=== PATIENT | female | born 1930 | race Caucasian/White ===

== ENCOUNTER 2018-04-27 20:08 | Observation (INO) ==
[2018-04-27] MEDS ORDERED: Sod Chloride 0.9% Inj 1,000 ML IV.SIG ONE (20:41)
[2018-04-27] MEDS ORDERED: Dextrose 5%/NaCl 0.9% Inj 1,000 ML IV.CONT SCH (20:45)
[2018-04-27 21:11] LABS: Baso # (Auto) 0.1 th/mm3 (0.0-0.2); Baso % (Auto) 0.6 % (0.0-2.0); Eos # (Auto) 0.1 th/mm3 (0.0-0.4); Eos % (Auto) 0.9 % (0.0-4.0); Hematocrit 39.8 % (35.0-46.0); Hemoglobin 13.1 gm/dL (11.6-15.3); Lymph # (Auto) 0.5 th/mm3 (1.0-4.8); Lymph % (Auto) 4.5 % (9.0-44.0); Mean Corpuscular HGB Conc 32.8 % (32.0-36.0); Mean Corpuscular Hemoglobin 28.7 pg (27.0-34.0); Mean Corpuscular Volume 87.4 fL (80.0-100.0); Mean Platelet Volume 9.2 fL (7.0-11.0); Mono # (Auto) 0.6 th/mm3 (0.0-0.9); Mono % (Auto) 5.9 % (0.0-8.0); Neut # (Auto) 8.7 th/mm3 (1.8-7.7); Neut % (Auto) 88.1 % (16.0-70.0); Platelet Count 229 th/mm3 (150-450); Red Blood Count 4.56 mil/mm3 (4.00-5.30); Red Cell Distribution Width 14.5 % (11.6-17.2)
[2018-04-27 21:21] LABS: Chloride 106 meq/L (98-107); Sodium 137 meq/L (136-145)
[2018-04-27 21:25] LABS: Albumin 3.6 g/dL (3.4-5.0); Anion Gap 6 meq/L (5-15); Carbon Dioxide 25.3 meq/L (21.0-32.0)
--- NOTE | 2018-04-27 21:30 | ED ---
HPI General Chief complaint: Diabetic Stated complaint: blood sugar is low Time Seen by Provider: 04/27/18 20:29 Source: patient Mode of arrival: ambulatory Limitations: no limitations History of Present Illness HPI narrative: Patient has had nausea vomiting and diarrhea for the last 3 days. Patient has had significant nausea and vomiting particularly today and one episode of diarrhea prior to arrival. Patient has had increased stress and has stopped her insulin for the last 3 days due to low sugar levels ranging between 50 and 70. However patient has had no significant oral intake for the 3 -day period. Stool is yellow green with no blood or black stools. Related Data Home Medications Medication Instructions Recorded Confirmed albuterol sulfate [Ventolin HFA] 2 puff INHALATION QID 04/27/18 04/27/18 aspirin [Aspir-81] 81 mg PO DAILY 04/27/18 04/27/18 cholecalciferol (vitamin D3) 1,000 unit PO DAILY 04/27/18 04/27/18 [Vitamin D3] coenzyme Q10 [Co Q-10] 100 mg PO DAILY 04/27/18 04/27/18 ezetimibe [Zetia] 10 mg PO DAILY 04/27/18 04/27/18 glimepiride 4 mg PO BID 04/27/18 04/27/18 hydroxychloroquine 200 mg PO DAILY 04/27/18 04/27/18 insulin degludec [Tresiba 15 unit SUBCUT DAILY 04/27/18 04/27/18 FlexTouch U-100] levothyroxine 50 mcg PO DAILY 04/27/18 04/27/18 linagliptin [Tradjenta] 5 mg PO DAILY 04/27/18 04/27/18 losartan 25 mg PO DAILY 04/27/18 04/27/18 multivitamin 1 tab PO DAILY 04/27/18 04/27/18 [id number] oil 1 cap PO DAILY 04/27/18 04/27/18 [[place]-3 2100] simvastatin 20 mg PO QPM 04/27/18 04/27/18 Allergies Allergy/AdvReac Type Severity Reaction Status Date / Time alendronate sodium Allergy Severe COULD NOT Verified 04/27/18 21:07 WALK levofloxacin Allergy Severe TENDINITIS Verified 04/27/18 21:07 penicillin G Allergy Severe Rash Verified 11/29/18 21:07 Sulfa (Sulfonamide Allergy Severe Anaphylaxis Verified 04/27/18 21:07 Antibiotics) STERIODS Allergy Severe TENDINITIS Uncoded 04/27/18 21:07 Review of Systems ROS: all other systems reviewed are negative [facility] Medical History Medical History History of COPD (Acute) History of high blood pressure (Acute) History of high cholesterol (Acute) History of hypothyroidism (Acute) Hx of cyst of breast (Acute) Hx of diabetes mellitus (Acute) Surgical History Surgical History Hx of appendectomy (Acute) Hx of tonsillectomy (Acute) Social History Social History Substance History: No History of Abuse Smoking Status: Former smoker Tobacco Type: Cigarettes How Often Do You Have a Drink Containing Alcohol: Never Recent Travel in [facility] within the Last 8 Weeks: No Recent Out of Country Travel within the Last 8 Weeks: No Immunization History Tetanus Immunization: >5 Years Exam Narrative Exam Narrative: GENERAL: Alert and oriented with nausea SKIN: Focused skin assessment warm/dry. HEAD: Atraumatic. Normocephalic. EYES: Pupils equal and round. No scleral icterus. No injection or drainage. ENT: No nasal bleeding or discharge. Mucous membranes pink and dry. NECK: Trachea midline. No JVD. CARDIOVASCULAR: Regular rate and rhythm. No murmur appreciated. RESPIRATORY: No accessory muscle use. Clear to auscultation. Breath sounds equal bilaterally. GASTROINTESTINAL: Abdomen soft, non-tender, nondistended. Hepatic and splenic margins not palpable. MUSCULOSKELETAL: No obvious deformities. No clubbing. No cyanosis. No edema. NEUROLOGICAL: Awake and alert. Motor grossly within normal limits. Normal speech. PSYCHIATRIC: Appropriate mood and affect; insight and judgment normal. Course Initial Documented Vital Signs Temperature 97.8 F 04/27/18 20:45 Pulse Rate 71 04/27/18 20:45 Respiratory Rate 18 04/27/18 20:45 Blood Pressure 158/69 H 04/27/18 20:45 Pulse Oximetry 95 04/27/18 20:45 Last Documented Vital Signs Temperature 97.8 F 04/27/18 20:45 Pulse Rate 71 04/27/18 20:45 Respiratory Rate 18 04/27/18 20:45 Blood Pressure 158/69 H 04/27/18 20:45 Pulse Oximetry 95 04/27/18 20:45 Medical Decision Making MDM Narrative Medical decision making narrative: Hypoglycemia secondary to glimeride with gastroenteritis and dehydration. Medical Screen Exam Complete: Yes Emergency Medical Condition: Yes Lab Data Result diagrams: 04/27/18 21:05 04/27/18 21:05 Lab Results 04/27/18 04/27/18 Range/Units 21:05 21:05 CBC w Diff Auto diff final WBC 10.0 (4.0-11.0) th/mm3 RBC 4.56 (4.00-5.30) mil/mm3 Hgb 13.1 (11.6-15.3) gm/dL Hct 39.8 (35.0-46.0) % MCV 87.4 (80.0-100.0) fL MCH 28.7 (27.0-34.0) pg MCHC 32.8 (32.0-36.0) % RDW 14.5 (11.6-17.2) % Plt Count 229 (150-450) th/mm3 MPV 9.2 (7.0-11.0) fL Neut % (Auto) 88.1 H (16.0-70.0) % Lymph % (Auto) 4.5 L (9.0-44.0) % Nance % (Auto) 5.9 (0.0-8.0) % Eos % (Auto) 0.9 (0.0-4.0) % Baso % (Auto) 0.6 (0.0-2.0) % Neut # (Auto) 8.7 H (1.8-7.7) th/mm3 Lymph # (Auto) 0.5 L (1.0-4.8) th/mm3 Nance # (Auto) 0.6 (0.0-0.9) th/mm3 Eos # (Auto) 0.1 (0.0-0.4) th/mm3 Baso # (Auto) 0.1 (0.0-0.2) th/mm3 WBC Differential . Differential Comment . Sodium 137 (136-145) meq/L Potassium 5.3 H (3.5-5.1) meq/L Chloride 106 (98-107) meq/L Carbon Dioxide 25.3 (21.0-32.0) meq/L Anion Gap 6 (5-15) meq/L BUN 27 H (7-18) mg/dL Creatinine 1.30 H (0.50-1.00) mg/dL Estimated GFR 39 L (>89) mL/min Random Glucose 46 L* (74-106) mg/dL Calcium 9.0 (8.5-10.1) mg/dL Magnesium 2.3 (1.5-2.5) mg/dL Total Bilirubin 0.5 (0.2-1.0) mg/dL AST 56 H (15-37) U/L ALT 42 (10-53) U/L Alkaline Phosphatase 73 (45-117) U/L Total Protein 7.5 (6.4-8.2) g/dL Albumin 3.6 (3.4-5.0) g/dL Discharge Plan Discharge Disposition Patient Disposition: 30 Still Patient Discharge Condition Condition: Stable Discharge Details Diagnosis: Hypoglycemia, Gastroenteritis, Acute dehydration Physicians Team ED Provider: Lawrence Lechuga Primary Care Provider: Lai Cunningham Attending Provider: Lai Cunningham Status ED Status: Admitted Observation Patient
[2018-04-27 21:35] LABS: Alanine Aminotransferase 42 U/L (10-53); Alkaline Phosphatase 73 U/L (45-117); Aspartate Aminotransferase 56 U/L (15-37); Blood Urea Nitrogen 27 mg/dL (7-18); Glomerular Filtration Rate 39 mL/min (>89); Magnesium 2.3 mg/dL (1.5-2.5); Total Protein 7.5 g/dL (6.4-8.2)
[2018-04-27 21:36] LABS: Potassium 5.3 meq/L (3.5-5.1)
[2018-04-27 21:37] LABS: Glucose,Random 46 mg/dL (74-106)
[2018-04-27] MEDS ORDERED: Octreotide Inj 50 MCG/ML Vial IV.PUSH ONE (21:45)
[2018-04-27] MEDS ORDERED: Octreotide Inj 500 MCG in Sodium Chlor 0.9% Inj 500 ML IV.CONT SCH (22:00)
[2018-04-27] MEDS ORDERED: Dextrose 50% in Water 50 ML Vial IV.PUSH PRN ×2 (22:01→23:12)
[2018-04-27] MEDS ORDERED: Dextrose 5%/NaCl 0.45% Inj 1,000 ML IV.CONT SCH (22:01)
[2018-04-27 23:11] LABS: Bilirubin,Urine Negative (Negative); Clarity,Urine Clear (Clear); Color,Urine Yellow (Yellw/Straw); Glucose,Urine (UA) Negative (Negative); Leukocyte Esterase,Urine Trace (Negative); Nitrite,Urine Negative (Negative); Specific Gravity,Urine Less/Equal 1.005 (1.002-1.035); Urobilinogen,Urine 0.2 mg/dL (Less than 2)
[2018-04-27 23:26] LABS: Squamous Epithelial Cell,Urine 0-5 /hpf (0-5); WBC,Urine 0-5 /hpf (0-5)
[2018-04-28] MEDS ORDERED: Sod Chloride 0.9% Inj 1,000 ML IV.CONT SCH (04:00)
[2018-04-28 06:32] LABS: Baso % (Auto) 0.5 % (0.0-2.0); Eos # (Auto) 0.2 th/mm3 (0.0-0.4); Eos % (Auto) 3.6 % (0.0-4.0); Hematocrit 34.8 % (35.0-46.0); Hemoglobin 11.4 gm/dL (11.6-15.3); Lymph % (Auto) 15.7 % (9.0-44.0); Mean Corpuscular HGB Conc 32.9 % (32.0-36.0); Mean Corpuscular Volume 88.2 fL (80.0-100.0); Mean Platelet Volume 9.6 fL (7.0-11.0); Mono # (Auto) 0.6 th/mm3 (0.0-0.9); Mono % (Auto) 9.7 % (0.0-8.0); Neut # (Auto) 4.3 th/mm3 (1.8-7.7); Neut % (Auto) 70.5 % (16.0-70.0); Platelet Count 191 th/mm3 (150-450); Red Blood Count 3.94 mil/mm3 (4.00-5.30); Red Cell Distribution Width 14.1 % (11.6-17.2); White Blood Count 6.1 th/mm3 (4.0-11.0)
[2018-04-28 06:43] LABS: Alanine Aminotransferase 37 U/L (10-53); Albumin 2.7 g/dL (3.4-5.0); Alkaline Phosphatase 61 U/L (45-117); Anion Gap 5 meq/L (5-15); Aspartate Aminotransferase 40 U/L (15-37); Blood Urea Nitrogen 21 mg/dL (7-18); Calcium 7.7 mg/dL (8.5-10.1); Carbon Dioxide 23.8 meq/L (21.0-32.0); Chloride 112 meq/L (98-107); Glomerular Filtration Rate 42 mL/min (>89); Glucose,Random 206 mg/dL (74-106); Potassium 4.3 meq/L (3.5-5.1); Sodium 141 meq/L (136-145); Total Protein 5.8 g/dL (6.4-8.2)
[2018-04-28] MEDS ORDERED: Levothyroxine 50 MCG Tablet PO SCH (07:00)
--- NOTE | 2018-04-28 08:16 | P.HP ---
History of Present Illness Service: [facility] Adult med Primary Care Physician: Lai Cunningham MD Chief Complaint: n/v/d, low blood sugars History of Present Illness: 87-year-old independently functional female with relatively well controlled diabetes presents to ER with complaint of nausea vomiting and diarrhea for the last 3 days. Patient has had significant nausea and vomiting particularly today and one episode of diarrhea prior to arrival. Patient has had increased stress and has stopped her insulin for the last 3 days due to low sugar levels ranging between 50 and 70. However patient has had no significant oral intake for the 3-day period. Stool is yellow green with no blood or black stools. Patient is on several oral hypoglycemic medications and has continued those medications despite not eating much. On arrival to ER her sugars were noted to be in the 40s. She was placed on D5W and was also given a dose of octreotide. Her sugars responded well to the dextrose infusion and are now running in the low 200s regularly. I converted her to normal saline a couple of hours ago and her sugar still around. She is overall feeling better has not had any diarrhea or vomiting since being in the hospital. She did have some nausea last night but was given a dose of Zofran which seemed to be quite effective for her. She feels better this morning and is desirous of discharge home today if possible. Denies any chest pain or shortness of breath. She had no hemoptysis or hematemesis. She has not had much oral intake here so we will see how she does with p.o. intake before formal disposition is made. SH No tobacco in 6 years, prior to that smoked a pack per day for about 63 years she says Rare alcohol use Lives alone and is quite independent of all activities of daily living. She still drives and does her own shopping and cooking. Has a daughter that lives close to her and checks on her regularly and a son who is a rock wool insulator in [facility]. 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 She has been a for 6 years. - Diagnosis (1) Hypoglycemia (2) Gastroenteritis (3) Acute dehydration (4) COPD (chronic obstructive pulmonary disease) (5) Diabetic nephropathy (6) Hyperlipidemia (7) Hypertension (8) Hypothyroidism Review of Systems Constitutional: Reports anorexia Eyes: Reports blurry vision Ears, Nose, Mouth, and Throat: Denies abnormal hearing, Denies bleeding gums, Denies bad breath, Denies change in voice, Denies dental pain, Denies difficulty swallowing, Denies dizziness, Denies dry mouth, Denies ear discharge , Denies ear pain, Denies facial pain, Denies headache(s), Denies hearing loss, Denies hoarseness, Denies lip swelling, Denies nosebleed, Denies mouth lesions, Denies mouth pain, Denies nasal congestion, Denies nasal discharge, Denies nasal obstruction, Denies nasal trauma, Denies neck lump, Denies neck pain, Denies nose pain, Denies pain with swallowing, Denies poor balance, Denies post nasal drip, Denies ringing in the ears, Denies sinus pain, Denies sinus pressure , Denies sore throat, Denies throat swelling, Denies tongue swelling, Denies other Cardiovascular: Denies chest pain, Denies chest pain at rest, Denies chest pain with activity, Denies excessive sweating, Denies fainting, Denies fast heart rate, Denies foot swelling, Denies generalized swelling, Denies irregular heart rhythm, Denies leg pain with activity, Denies leg sores, Denies leg swelling, Denies lightheadedness, Denies radiating jaw, neck or arm pain, Denies rapid, pounding, or irregular heartbeat, Denies shortness of breath, Denies shortness of breath with activity, Denies shortness of breath when lying down, Denies shortness of breath causing sudden awakening, Denies slow heart rate, Denies other Respiratory: Denies change in phlegm color, Denies chest congestion, Denies cough, Denies coughing up blood, Denies excessive phlegm production, Denies pain on inspiration, Denies pain with cough, Denies shortness of breath, Denies shortness of breath with activity, Denies snoring, Denies stridor, Denies wheezing, Denies other Gastrointestinal: Reports bloating, Reports change in stools, Reports heartburn , Reports loose stools, Reports nausea, Reports vomiting, Denies abdominal pain , Denies belching, Denies black, tarry stools, Denies bright, red blood in stools, Denies change in bowel habits, Denies constant urge to pass stool, Denies coffee ground vomit, Denies constipation, Denies cramping, Denies difficulty swallowing, Denies excessive passing of gas, Denies feeling full early, Denies incontinent of stools, Denies pain with swallowing, Denies vomiting blood, Denies other Musculoskeletal: Reports back pain, Denies abnormal walking, Denies body aches, Denies decreased muscle mass, Denies deformity, Denies joint pain, Denies joint swelling, Denies limited joint movement, Denies loss of height, Denies muscle cramps, Denies muscle weakness, Denies neck pain, Denies numbness, Denies radiating pain into limb, Denies stiffness, Denies tingling, Denies other Psychiatric: Denies abnormal sleep pattern, Denies anxiety, Denies behavioral changes, Denies change in appetite, Denies change in sex drive, Denies confusion , Denies depression, Denies difficulty concentrating, Denies hearing things others do not hear, Denies hopelessness, Denies irritability, Denies lack of enjoyment, Denies memory loss, Denies mood swings, Denies panic attacks, Denies paranoia, Denies seeing things others do not see, Denies sensing things others do not sense, Denies tactile hallucinations, Denies thoughts of hurting/killing others, Denies thoughts of hurting/killing yourself, Denies other PMFSH - History History Provided By: Patient - Medical History Medical History: Medical History (Last Updated 04/28/18 @ 08:12 by Marshal Aponte MD, PhD) Hypothyroidism (Acute) COPD (chronic obstructive pulmonary disease) (Acute) Diabetic nephropathy (Acute) Hyperlipidemia (Acute) Hypertension (Acute) Hx of cyst of breast - Surgical History Surgical History: Surgical History (Last Updated 04/28/18 @ 08:03 by Marshal Aponte MD, PhD) H/O exploratory laparotomy Onset Date: ~1970 History of cataract surgery Hx of appendectomy Hx of tonsillectomy - Family History Family History: Family History (Last Updated 04/28/18 @ 08:04 by Marshal Aponte MD, PhD) Other Family history non-contributory - Social History I have reviewed the patient's Social History: Yes - Tobacco History Tobacco Use In Past 30 Days: No Smoking Status: Former smoker Tobacco Type: Cigarettes Packs Per Day: 1 Years Smoked: 63 Smoking End Date: 2012 - Alcohol History How Often Do You Have a Drink Containing Alcohol: Monthly or less - Substance Use History Substance History: No History of Abuse - Travel History Recent Travel in the [place] Within the Last 8 Weeks: No Recent Travel Out of the Country Within the Last 8 Weeks: No - Immunization History Tetanus Immunization: >5 Years Medications and Allergies Active Medications: Active Medications Albuterol (Duoneb Neb (Prn)) 1 ampul NEB Q4HR NEB PRN PRN Reason: wheeze, sob Aspirin (Ecotrin) 81 mg PO DAILY [facility] Dextrose (D50w Vial) 50 ml IV.PUSH UNSCH PRN PRN Reason: PER HYPOGLYCEMIA PROTOCOL Hydroxychloroquine Sulfate (Plaquenil) 200 mg PO DAILY [facility] Sodium Chloride (Ns Inj) 1,000 mls @ 84 mls/hr IV.CONT .[id number] [facility] Last Admin: 04/28/18 03:40 Dose: 84 mls/hr Levothyroxine Sodium (Synthroid) 50 mcg PO DAILY@0700 [facility] Last Admin: 04/28/18 07:16 Dose: 50 mcg Ondansetron HCl (Zofran Inj) 4 mg IV.PUSH Q6H PRN PRN Reason: nausea, vomiting Pravastatin Sodium (Pravachol) 40 mg PO QPM [facility] Sodium Chloride (Ns Flush) 2 ml IV.FLUSH PRN PRN PRN Reason: FLUSH AFTER USING IV ACCESS Allergies Allergy/AdvReac Type Severity Reaction Status Date / Time alendronate sodium Allergy Severe COULD NOT Verified 04/27/18 21:07 WALK levofloxacin Allergy Severe TENDINITIS Verified 04/27/18 21:07 penicillin G Allergy Severe Rash Verified 04/27/18 21:07 Sulfa (Sulfonamide Allergy Severe Anaphylaxis Verified 04/27/18 21:07 Antibiotics) STERIODS Allergy Severe TENDINITIS Uncoded 04/27/18 21:07 Home Medications Medication Instructions Recorded Confirmed Type albuterol sulfate [Ventolin HFA] 2 puff INHALATION QID 04/27/18 04/27/18 History aspirin [Aspir-81] 81 mg PO DAILY 04/27/18 04/27/18 History cholecalciferol (vitamin D3) 1,000 unit PO DAILY 04/27/18 04/27/18 History [Vitamin D3] coenzyme Q10 [Co Q-10] 100 mg PO DAILY 04/27/18 04/27/18 History ezetimibe [Zetia] 10 mg PO DAILY 04/27/18 04/27/18 History glimepiride 4 mg PO BID 04/27/18 04/27/18 History hydroxychloroquine 200 mg PO DAILY 04/27/18 04/27/18 History insulin degludec [Tresiba 15 unit SUBCUT DAILY 04/27/18 04/27/18 History FlexTouch U-100] levothyroxine 50 mcg PO DAILY 04/27/18 04/27/18 History linagliptin [Tradjenta] 5 mg PO DAILY 04/27/18 04/27/18 History losartan 25 mg PO DAILY 04/27/18 04/27/18 History multivitamin 1 tab PO DAILY 04/27/18 04/27/18 History [id number] oil 1 cap PO DAILY 04/27/18 04/27/18 History [[place]-3 2100] simvastatin 20 mg PO QPM 04/27/18 04/27/18 History Exam Vital signs: Vital Signs 04/27/18 20:45 04/27/18 22:00 04/28/18 00:05 Temperature 97.8 F Pulse Rate 71 76 Respiratory Rate 18 16 Blood Pressure 158/69 H 97/55 L Pulse Oximetry 95 95 96 04/28/18 01:33 04/28/18 06:05 04/28/18 07:20 Temperature Pulse Rate 76 69 74 Respiratory Rate 16 16 18 Blood Pressure 102/63 111/56 L 164/60 H Pulse Oximetry 95 96 95 Intake & Output 04/27/18 04/28/18 04/28/18 18:59 06:59 18:59 Intake Total 2099 Balance 2099 Weight 61.3 kg Intake: IV 2099 D5W/1/2 NS Inj 1,000 ML @ 84 100 / 100 mls/hr IV.CONT .[id number] CA Rx# :[id number] D5W/Normal Saline Inj 1,000 ML 1000 / 1000 @ 250 mls/hr IV.CONT .Q4H CA Rx#:[id number] NS Inj 1,000 ML @ Wide Open IV. 1000 / 1000 SIG BOLUS ONE Rx#:[id number] Narrative: GENERAL: No acute distress, cooperative, alert and oriented. Quite pleasant. SKIN: Warm and dry. Slight cirrhotic rash distal left pretibia and ankle. HEAD: Atraumatic. Normocephalic. EYES: Pupils equal and round. No scleral icterus. No injection or drainage. ENT: No nasal bleeding or discharge. Mucous membranes pink and moist. NECK: Trachea midline. No JVD. CARDIOVASCULAR: Regular rate and rhythm. No significant murmurs appreciated. RESPIRATORY: No accessory muscle use. Clear to auscultation. Breath sounds equal bilaterally. GASTROINTESTINAL: Abdomen soft, nondistended. Mild global tenderness to palpation but no guarding or rebound. Bowel sounds normal to slightly hyperactive. Hepatic and splenic margins not palpable. MUSCULOSKELETAL: Extremities without clubbing, cyanosis, or edema. No obvious deformities. NEUROLOGICAL: Awake and alert. No obvious cranial nerve deficits. Motor grossly within normal limits. Five out of 5 muscle strength in the arms and legs. Normal speech. PSYCHIATRIC: Appropriate mood and affect; insight and judgment normal. Results - Labs CBC & Chem 7: 04/28/18 06:05 04/28/18 06:05 Labs: Laboratory Results - last 24 hr 04/27/18 04/27/18 04/27/18 21:05 21:05 22:30 CBC w Diff Auto diff final WBC 10.0 RBC 4.56 Hgb 13.1 Hct 39.8 MCV 87.4 MCH 28.7 MCHC 32.8 RDW 14.5 Plt Count 229 MPV 9.2 Neut % (Auto) 88.1 H Lymph % (Auto) 4.5 L [place] % (Auto) 5.9 Eos % (Auto) 0.9 Baso % (Auto) 0.6 Neut # (Auto) 8.7 H Lymph # (Auto) 0.5 L [place] # (Auto) 0.6 Eos # (Auto) 0.1 Baso # (Auto) 0.1 WBC Differential . Differential Comment . Sodium 137 Potassium 5.3 H Chloride 106 Carbon Dioxide 25.3 Anion Gap 6 BUN 27 H Creatinine 1.30 H Estimated GFR 39 L POC Glucose Random Glucose 46 L* 89 Calcium 9.0 Magnesium 2.3 Total Bilirubin 0.5 AST 56 H ALT 42 Alkaline Phosphatase 73 Total Protein 7.5 Albumin 3.6 Urine Color Urine Clarity Urine pH Ur Specific [place] Urine Protein Urine Glucose (UA) Urine Ketones Urine Occult Blood Urine Nitrate Urine Bilirubin Urine Urobilinogen Ur Leukocyte Esterase Urine WBC Ur Squamous Epith Cells Micro UA Comment Ur Microscopic Review Urine Culture Comments 04/27/18 04/27/18 04/27/18 22:37 22:45 23:35 CBC w Diff WBC RBC Hgb Hct MCV MCH MCHC RDW Plt Count MPV Neut % (Auto) Lymph % (Auto) [place] % (Auto) Eos % (Auto) Baso % (Auto) Neut # (Auto) Lymph # (Auto) [place] # (Auto) Eos # (Auto) Baso # (Auto) WBC Differential Differential Comment Sodium Potassium Chloride Carbon Dioxide Anion Gap BUN Creatinine Estimated GFR POC Glucose 117 H 110 Random Glucose Calcium Magnesium Total Bilirubin AST ALT Alkaline Phosphatase Total Protein Albumin Urine Color Yellow Urine Clarity Clear Urine pH 6.0 Ur Specific [place] Less/equal 1.005 Urine Protein Negative Urine Glucose (UA) Negative Urine Ketones Negative Urine Occult Blood Negative Urine Nitrate Negative Urine Bilirubin Negative Urine Urobilinogen 0.2 Ur Leukocyte Esterase Trace H Urine WBC 0-5 Ur Squamous Epith Cells 0-5 Micro UA Comment Culture not ind Ur Microscopic Review Microscopic reviewed Urine Culture Comments Culture not ind 04/28/18 04/28/18 04/28/18 00:37 00:40 01:31 CBC w Diff WBC RBC Hgb Hct MCV MCH MCHC RDW Plt Count MPV Neut % (Auto) Lymph % (Auto) [place] % (Auto) Eos % (Auto) Baso % (Auto) Neut # (Auto) Lymph # (Auto) [place] # (Auto) Eos # (Auto) Baso # (Auto) WBC Differential Differential Comment Sodium Potassium Chloride Carbon Dioxide Anion Gap BUN Creatinine Estimated GFR POC Glucose 182 H 164 H 208 H Random Glucose Calcium Magnesium Total Bilirubin AST ALT Alkaline Phosphatase Total Protein Albumin Urine Color Urine Clarity Urine pH Ur Specific [place] Urine Protein Urine Glucose (UA) Urine Ketones Urine Occult Blood Urine Nitrate Urine Bilirubin Urine Urobilinogen Ur Leukocyte Esterase Urine WBC Ur Squamous Epith Cells Micro UA Comment Ur Microscopic Review Urine Culture Comments 04/28/18 04/28/18 04/28/18 02:39 04:10 06:05 CBC w Diff Auto diff final WBC 6.1 RBC 3.94 L Hgb 11.4 L Hct 34.8 L MCV 88.2 MCH 29.0 MCHC 32.9 RDW 14.1 Plt Count 191 MPV 9.6 Neut % (Auto) 70.5 H Lymph % (Auto) 15.7 [place] % (Auto) 9.7 H Eos % (Auto) 3.6 Baso % (Auto) 0.5 Neut # (Auto) 4.3 Lymph # (Auto) 1.0 [place] # (Auto) 0.6 Eos # (Auto) 0.2 Baso # (Auto) 0.0 WBC Differential . Differential Comment . Sodium Potassium Chloride Carbon Dioxide Anion Gap BUN Creatinine Estimated GFR POC Glucose 287 H 205 H Random Glucose Calcium Magnesium Total Bilirubin AST ALT Alkaline Phosphatase Total Protein Albumin Urine Color Urine Clarity Urine pH Ur Specific [place] Urine Protein Urine Glucose (UA) Urine Ketones Urine Occult Blood Urine Nitrate Urine Bilirubin Urine Urobilinogen Ur Leukocyte Esterase Urine WBC Ur Squamous Epith Cells Micro UA Comment Ur Microscopic Review Urine Culture Comments 04/28/18 04/28/18 06:05 06:05 CBC w Diff WBC RBC Hgb Hct MCV MCH MCHC RDW Plt Count MPV Neut % (Auto) Lymph % (Auto) [place] % (Auto) Eos % (Auto) Baso % (Auto) Neut # (Auto) Lymph # (Auto) [place] # (Auto) Eos # (Auto) Baso # (Auto) WBC Differential Differential Comment Sodium 141 Potassium 4.3 D Chloride 112 H Carbon Dioxide 23.8 Anion Gap 5 BUN 21 H Creatinine 1.20 H Estimated GFR 42 L POC Glucose 214 H Random Glucose 206 H D Calcium 7.7 L D Magnesium Total Bilirubin 0.4 AST 40 H ALT 37 Alkaline Phosphatase 61 Total Protein 5.8 L D Albumin 2.7 L D Urine Color Urine Clarity Urine pH Ur Specific [place] Urine Protein Urine Glucose (UA) Urine Ketones Urine Occult Blood Urine Nitrate Urine Bilirubin Urine Urobilinogen Ur Leukocyte Esterase Urine WBC Ur Squamous Epith Cells Micro UA Comment Ur Microscopic Review Urine Culture Comments Caprini VTE Risk Assessment Caprini VTE Risk Assessment: Moderate/High Risk (score >= 2) Caprini Risk Assessment Model: Point Value = 1 Point Value = 2 Point Value = 3 Point Value = 5 Age 41-60 Minor surgery BMI > 25 kg/m2 Swollen legs Varicose veins or History of unexplained or recurrent spontaneous Oral contraceptives or hormone replacement Sepsis (< 1 month) Serious lung disease, including pneumonia (< 1 month) Abnormal pulmonary function Acute myocardial infarction Congestive heart failure (< 1 month) History of inflammatory bowel disease Medical patient at bed rest Age 61-74 Arthroscopic surgery Major open surgery (> 45 min) Laparoscopic surgery (> 45 min) Malignancy Confined to bed (> 72 hours) Immobilizing plaster cast Central venous access Age >= 75 History of VTE Family history of VTE Factor V Leiden Prothrombin [id number] Lupus anticoagulant Anticardiolipin antibodies Elevated serum homocysteine Heparin-induced thrombocytopenia Other congenital or acquired thrombophilia Stroke (< 1 month) Elective arthroplasty Hip, pelvis, or leg fracture Acute spinal cord injury (< 1 month) Prophylaxis Regimen: Total Risk Factor Score Risk Level Prophylaxis Regimen 0-1 Low Early ambulation 2 Moderate Order ONE of the following: *Sequential Compression Device (SCD) *Heparin 5000 units SQ BID 3-4 Higher Order ONE of the following medications: *Heparin 5000 units SQ TID *Enoxaparin/Lovenox 40 mg SQ daily (WT < 150 kg, CrCl > 30 mL/min) *Enoxaparin/Lovenox 30 mg SQ daily (WT < 150 kg, CrCl > 10-29 mL/min) *Enoxaparin/Lovenox 30 mg SQ BID (WT < 150 kg, CrCl > 30 mL/min) AND/OR *Sequential Compression Device (SCD) 5 or more Highest Order ONE of the following medications: *Heparin 5000 units SQ TID (Preferred with Epidurals) *Enoxaparin/Lovenox 40 mg SQ daily (WT < 150 kg, CrCl > 30 mL/min) *Enoxaparin/Lovenox 30 mg SQ daily (WT < 150 kg, CrCl > 10-29 mL/min) *Enoxaparin/Lovenox 30 mg SQ BID (WT < 150 kg, CrCl > 30 mL/min) AND *Sequential Compression Device (SCD) Assessment and Plan - Assessment (1) Hypoglycemia Code(s): E16.2 - Hypoglycemia, unspecified Status: Acute Plan: Improved with D5. Patient now on normal saline. We will institute Accu-Cheks and sliding scale insulin for coverage. If she tolerates oral intake will reinstitute some of her home insulin and hold off on the sulfonylurea at this point. Possibly discharge home later today depending on her response and ability to tolerate oral intake. (2) Gastroenteritis Code(s): K52.9 - Noninfective gastroenteritis and colitis, unspecified Status : Acute Plan: Clinically seems to be improving. IV fluids of help. Use Zofran as needed (3) Acute dehydration Code(s): E86.0 - Dehydration Status: Acute Plan: GFR appears back to her baseline. BP has improved and actually is a little elevated at this point. (4) COPD (chronic obstructive pulmonary disease) Code(s): J44.9 - Chronic obstructive pulmonary disease, unspecified Status: Chronic Plan: Continue home medication. (5) Diabetic nephropathy Code(s): E11.21 - Type 2 diabetes mellitus with diabetic nephropathy Status: Chronic Plan: As above. We will likely reinstitute some of her home insulin. We will stay away from the sulfonylurea at this point (6) Hyperlipidemia Code(s): E78.5 - Hyperlipidemia, unspecified Status: Chronic Plan: Continue home medication as tolerated. (7) Hypertension Code(s): I10 - Essential (primary) hypertension Status: Chronic Plan: Resume blood pressure medication as vitals allow. (8) Hypothyroidism Code(s): E03.9 - Hypothyroidism, unspecified Status: Chronic Plan: Continue medication - Plan Code Status: Full Discussed Condition With: Patient, ER provider and nurse Discharge Planning: Hopefully discharge home later today.
[2018-04-28 08:41] VITALS: BP 119/60; PULSE 71; RESP 17; TEMP 98.4; O2SAT 94
[2018-04-28] MEDS ORDERED: Ezetimibe 10 MG Tablet PO SCH (09:00)
[2018-04-28] MEDS ORDERED: Non-Formulary Drug (Coenzyme Q10 [Co Q-10] 100 MG) PO SCH (09:00)
[2018-04-28] MEDS ORDERED: Hydroxychloroquine 200 MG Tablet PO SCH (09:00)
[2018-04-28] MEDS ORDERED: Dextrose 50% in Water 50 ML Vial IV.PUSH PRN (09:13)
[2018-04-28] MEDS ORDERED: Insulin NovoLOG Aspart Correctional Sugar Inj SQ SCH (12:00)
--- NOTE | 2018-04-28 15:54 | P.PNADD ---
Addendum to Inpatient Note Reason for Addendum: Additional Documentation Additional information: Spoke with pt's nurse. Pt has been doing well. No more n/v/d and she is tolerating PO intake well. She is desirous of d/c home and has a daughter who helps her with meds, etc. Will decrease her home insulin by 1/2 and resume Tradjenta. She will monitor sugars closely and call this w/e if sugars <80 or consistently >200. She will stay hydrated. Will provide protonix rx for her reflux. Left message for her daughter and gave specific, detailed instructions to [facility] nurse.
== END 2018-04-28 17:30 | disposition home or self-care (01) ==
LOC: PHEDA 20:08 → PHED 20:08 → PHEDH 04-28 02:42 → PHICU 04-28 08:21
PROVIDERS: ADMIT Family Medicine; ATTEND Family Medicine
DX: F17.210 Nicotine dependence, cigarettes, uncomplicated; E78.5 Hyperlipidemia, unspecified; Z79.4 Long term (current) use of insulin; I10 Essential (primary) hypertension; K52.9 Noninfective gastroenteritis and colitis, unspecified; Z79.890 Hormone replacement therapy; E11.21 Type 2 diabetes mellitus with diabetic nephropathy; E11.649 Type 2 diabetes mellitus with hypoglycemia without coma; E86.0 Dehydration; J44.9 Chronic obstructive pulmonary disease, unspecified; Z90.49 Acquired absence of other specified parts of digestive tract; K21.9 Gastro-esophageal reflux disease without esophagitis; E03.9 Hypothyroidism, unspecified; Z88.2 Allergy status to sulfonamides